=== PATIENT | female | born 1985 | race Two or more races ===

== ENCOUNTER → 2017-01-20 | Outpatient (CLI) | payer SELFPAY ==
--- NOTE | 2017-01-20 15:36 | RADIOLOGY REPORT (SQ) ---
EXAM DESCRIPTION: U/S OB 14+ TRNABD 1GES W/O DOP COMPLETED DATE/TIME: 01/20/2017 2:35 pm REASON FOR STUDY: ENCOUNTER FOR SUPERVISION OF OTHER NORMAL , SECOND TRIMESTER Z34.82 ENCO UNTER FOR SUPRVSN OF NORMAL , SECOND TRI COMPARISON: None. TECHNIQUE: Static and Dynamic grayscale imaging performed of gravid uterus using transabdominal appr oach. Additional selected color Doppler and spectral images recorded. All stored on PACS. LIMITATIONS: None. FINDINGS: EGA: 29 weeks 48 weeks MCKENZIE: 05/16/2017 EFW: 1415+/- 209 grams PERCENTILE: Not calculated BRIE: 13.6 cm PLACENTA: Anterior GRADE: I PRESENTATION: Cephalic. ANATOMY: HEART RATE: 147 beats per minute. FOUR CHAMBER HEART: Visualized. THREE VESSEL CORD: Yes. CORD INSERTION: Visualized. KIDNEYS AND BLADDER: Renal pelves appear prominent, 1 greater than the other. STOMACH: Visualized. Appears normal. SPINE: Normal as visualized. BRAIN AND LATERAL VENTRICLES: Lateral ventricles not seen. normal brain as visualized. OTHER: No other significant finding. MATERNAL ADNEXA: Maternal ovaries not visualized. CERVICAL LENGTH: Not applicable. Greater than 20 weeks. Need transvaginal study if indicated. Close d. OTHER: No other significant finding. IMPRESSION: 1. Live intrauterine gestation 29 weeks 4 days with an estimated date of delivery of . 2. The renal pelves are prominent, 1 more so than the other. Trimester of : Third trimester - 28 weeks to delivery. TECHNICAL DOCUMENTATION: JOB ID: [id number] [employer]- All Rights Reserved
== END ==
LOC: RAD 13:38
PROVIDERS: ATTEND Nurse Practitioner Women's Health
DX: Z34.83 Encounter for supervision of other normal pregnancy, third trimester (principal)
CPT/HCPCS: 76805

== ENCOUNTER 2017-04-07 00:48 | Inpatient (IN) | payer MEDICAID ==
[2017-04-07 01:45] LABS: AMNISURE (ROM) POSITIVE (NEGATIVE)
[2017-04-07 01:48] LABS: APPEARANCE,URINE CLEAR; BILIRUBIN,URINE NEGATIVE (NEGATIVE); GLUCOSE, URINE NEGATIVE (NEGATIVE); KETONES,URINE NEGATIVE (NEGATIVE); LEUKOCYTE ESTERASE,URINE TRACE (NEGATIVE); NITRITE,URINE NEGATIVE (NEGATIVE); PROTEIN,URINE NEGATIVE (NEGATIVE); URINE SPECIFIC GRAVITY 1.026; UROBILINOGEN,URINE NEGATIVE mg/dL (<2.0)
[2017-04-07] MEDS ORDERED: PENICILLIN G POTASSIUM 5,000,000 UNIT in DEXTROSE 5%-WATER 100 ML IV ONE (01:53)
[2017-04-07] MEDS ORDERED: RINGERS SOLUTION,LACTATED 1,000 ML IV ONE (01:53)
[2017-04-07 02:04] LABS: URINE BARBITURATES SCREEN NEGATIVE; URINE METHADONE SCREEN NEGATIVE; URINE OPIATES LOW NEGATIVE; URINE PHENCYCLIDINE SCREEN NEGATIVE
[2017-04-07] MEDS ORDERED: PENICILLIN G-K 5 MILLION UNIT VIAL IV PRN (02:05)
[2017-04-07] MEDS ORDERED: PENICILLIN G-K 5 MILLION UNIT VIAL ONE ×3 (02:28→10:09)
[2017-04-07 02:54] LABS: ABSOLUTE BASOPHILS # (AUTO) 0.1 10^3/uL (0.0-0.2); ABSOLUTE EOSINOPHILS # (AUTO) 0.5 10^3/uL (0.0-0.6); ABSOLUTE LYMPHOCYTES (AUTO) 1.7 10^3/uL (0.5-4.7); BASOPHILS % (AUTO) 0.6 % (0-2); EOSINOPHILS % (AUTO) 4.3 % (0-6); HEMOGLOBIN 9.4 g/dL (12.0-15.5); HGB HCT DIFFERENCE -0.8; LYMPHOCYTES % (AUTO) 15.4 % (13-45); MEAN CORPUSCULAR HEMOGLOBIN 24.7 pg (27.0-33.4); MEAN CORPUSCULAR HGB CONC 32.4 g/dL (32.0-36.0); MEAN CORPUSCULAR VOLUME 76 fl (80-97); MONOCYTES % (AUTO) 8.5 % (3-13); RED BLOOD COUNT 3.81 10^6/uL (3.72-5.28); RED CELL DISTRIBUTION WIDTH 14.4 % (11.5-14.0); SEGMENTED NEUTROPHILS % (AUTO) 71.2 % (42-78); WHITE BLOOD COUNT 11.2 10^3/uL (4.0-10.5)
[2017-04-07] MEDS ORDERED: OXYTOCIN/NORMAL SALINE 20 UNIT/1,000 ML RTUINJ ONE ×3 (03:49→13:04)
[2017-04-07] MEDS ORDERED: MISOPROSTOL 0.2 MG TABLET ONE ×2 (06:06→13:04)
[2017-04-07] MEDS ORDERED: LIDOCAINE 1% INJ-PF (10 MG/ML) 30 ML SDV ONE ×2 (06:06→13:04)
[2017-04-07] MEDS ORDERED: FENTANYL/BUPIVACAINE/NS/PF 200 MCG/100 ML RTUINJ EPI ONE (09:18)
[2017-04-07] MEDS ORDERED: EPHEDRINE SULFATE INJ 50 MG/1 ML AMPULE ONE (09:18)
[2017-04-07] MEDS ORDERED: BUPIVACAINE HCL 0.25 % INJ/PF (2.5 MG/1 ML) 30 ML VIAL ONE (09:19)
[2017-04-07] MEDS ORDERED: OXYTOCIN 10 UNIT/ML VIAL ONE (13:02)
[2017-04-07] MEDS ORDERED: DIPHENHYDRAMINE HCL 25 MG CAPSULE PO PRN (13:43)
[2017-04-07] MEDS ORDERED: NA PHOS,M-B/NA PHOS,DI-BA (ADULT) 133 ML ENEMA PR PRN (13:43)
[2017-04-07] MEDS ORDERED: PROMETHAZINE HCL 25 MG TABLET PO PRN (13:43)
[2017-04-07] MEDS ORDERED: GLYCERIN/WITCH HAZEL LEAF 1 EACH MED..PAD TP PRN (13:43)
[2017-04-07] MEDS ORDERED: MEASLES,MUMPS&RUBELLA VACC/PF 0.5 ML VIAL SUBCUT PRN (13:43)
[2017-04-07] MEDS ORDERED: ACETAMINOPHEN 650 MG SUPP.RECT PR PRN (13:43)
[2017-04-07] MEDS ORDERED: BENZOCAINE/MENTHOL AEROSOL SPRAY 56 ML TOP PRN (13:43)
[2017-04-07] MEDS ORDERED: MAGNESIUM HYDROXIDE SUSP 30 ML UDCUP PO PRN (13:43)
[2017-04-07] MEDS ORDERED: DIPH/PERTUSS(ACELL)/TETANUS VAC/PF 0.5 ML SYR (>=10YO) IM PRN (13:43)
[2017-04-07] MEDS ORDERED: PSEUDOEPHEDRINE HCL 30 MG TABLET PO PRN (13:43)
[2017-04-07] MEDS ORDERED: OXYTOCIN/NORMAL SALINE 20 UNIT/1,000 ML RTUINJ IV PRN (13:43)
[2017-04-07] MEDS ORDERED: DIBUCAINE 1% OINTMENT 28 GM TP PRN (13:43)
[2017-04-07] MEDS ORDERED: PROMETHAZINE HCL 25 MG SUPP.RECT PR PRN (13:43)
[2017-04-07] MEDS ORDERED: PROMETHAZINE HCL INJ 25 MG/1 ML VIAL IV PRN (13:43)
[2017-04-07] MEDS ORDERED: ACETAMINOPHEN WITH CODEINE #3 TABLET PO PRN (13:43)
[2017-04-07] MEDS ORDERED: IBUPROFEN 800 MG TABLET ONE (15:16)
[2017-04-07] MEDS ORDERED: ACETAMINOPHEN 325 MG TABLET ONE (15:16)
[2017-04-07] MEDS: IBUPROFEN 800 MG TABLET PO SCH ×2 (15:21→22:10)
--- NOTE | 2017-04-07 15:37 | Admission Physical ---
Datetime Report Generated by CPN: 04/07/2017 15:37 CURRENT ADMISSION Chief Complaint: Suspected Ruptured Membranes Indication for Induction: PROM Indication for Induction: Term, Intrauterine ; Ruptured Membranes Admit Plan: Admit to Unit; Initiate Labor Induction Protocol ALLERGIES Medication Allergies: No Medication Allergies: No Known Allergies (04/07/2017) Medication Allergies: No Known Allergies (01/06/2014) Latex: No Latex Allergies Food Allergies: N/A OBSTETRICAL HISTORY EDC: 04/03/2017 00:00 : 4 Para: 2 Term: 2 : 0 SAB: 1 IAB: 0 Ectopic: 0 Livin Cesareans: 0 VBACs: 0 Multiple Births: 1 Gestational Diabetes: No Rh Sensitization: No Incompetent Cervix: No JOSE: No Infertility: No ART Treatment: No Uterine Anomaly: No IUGR: No Hx Previous C/S: No Macrosomia: No Hx Loss/Stillborn: No PIH: No Hx : No Placenta Previa/Abruption: No Depression/PP Depression: No PTL/PROM: No Post Hemorrhage: No Current Procedures: Ultrasound; NST Obstetrical History Comments: G1- 40.1-gvciim-4izc 6 oz G2-SAB around 10 weeks G3-Induced at 41.0-ulwtbz-8sot 14oz SEE RECORDS Alcohol: No Marijuana : No Cocaine: No Other Illicit Drugs: No Cigarettes: Never Smoker. 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 Surgery: No Heart Disease: No Hosp/Surgery: No Autoimmune Disorder: No Anesthetic Complications: No Kidney Disease: No Abnormal Pap Smear: Yes Neuro/Epilepsy: No Psychiatric Disorders: No Other Medical Diseases: No Hepatitis/Liver Disease: No Significant Family History: No Varicosities/Phlebitis: No Trauma/Violence : No Thyroid Dysfunction: No Medical History Comments: childhood asthma INFECTIOUS HISTORY Gonorrhea: No Genital Herpes: No Chlamydia: No Tuberculosis: No Syphilis: No Hepatitis: No HIV/AIDS Exposure: No Rash or Viral Illness: No HPV: Yes PHYSICAL EXAM General: Normal HEENT: Normal Neurologic: Normal Thyroid: Normal Heart: Normal Lungs: Normal Breast: Deferred Back: Normal Abdomen: Normal Genitourinary Exam: Normal Extremities: Normal DTRs: Normal Pelvic Type: Adequate Vital Signs: Reviewed VAGINAL EXAM Dilatation: 2 Effacement: 60 Station: -2 MEMBRANES Pooling: Positive Membranes: Ruptured FETUS A EGA: 40.4 Monitoring: External US FHR- Baseline: 120 Variability: Moderate 6-25bpm Accelerations: 15X15 Decelerations: None FHR Category: Category I Admit Comment: Admit for pitocin PLANS FOR LABOR AND DELIVERY Labor and Delivery: None Pain Management: None Feeding Preference: Breast Benefit of Breast Feed Discussed: Yes Circumcision: Yes INFORMED CONSENT Signature: with User ID: [email or web address]
[2017-04-07] MEDS: PENICILLIN G POTASSIUM 2,500,000 UNIT in DEXTROSE 5%-WATER 50 ML IV SCH ×2 (16:16→17:07)
[2017-04-07] MEDS ORDERED: INFLUENZA ADLT QUAD (36MOS+) 2017-18 VAC 0.5 ML SYR IM PRN (16:16)
[2017-04-07] MEDS: FERROUS SULFATE 325 MG TABLET PO SCH (17:38)
[2017-04-07] MEDS: DOCUSATE SODIUM 100 MG CAPSULE PO SCH (17:38)
[2017-04-07] MEDS: FAMOTIDINE 20 MG TABLET PO SCH (22:09)
[2017-04-08] MEDS: PENICILLIN G POTASSIUM 2,500,000 UNIT in DEXTROSE 5%-WATER 50 ML IV SCH (00:44)
[2017-04-08] MEDS: IBUPROFEN 800 MG TABLET PO SCH ×3 (05:07→22:44)
[2017-04-08 08:09] LABS: HEMATOCRIT 28.4 % (36.0-47.0); HEMOGLOBIN 9.3 g/dL (12.0-15.5); HGB HCT DIFFERENCE -0.5; MEAN CORPUSCULAR HEMOGLOBIN 25.2 pg (27.0-33.4); MEAN CORPUSCULAR HGB CONC 32.9 g/dL (32.0-36.0); MEAN CORPUSCULAR VOLUME 77 fl (80-97); RED CELL DISTRIBUTION WIDTH 14.8 % (11.5-14.0); WHITE BLOOD COUNT 13.2 10^3/uL (4.0-10.5)
--- NOTE | 2017-04-08 09:01 | PDOC PROGRESS REPORT ---
Subjective-OB Subjective: Post Delivery Day: 1 31 year old. Denies any needs at this time, voiding without difficulty, tolerating diet, pain is well controlled. Physical Exam (OB) Vital Signs: Temp Pulse Resp BP Pulse Ox 97.8 F 84 18 103/65 100 04/08/17 08:00 04/08/17 08:00 04/08/17 08:00 04/08/17 08:00 04/08/17 08:00 Intake & Output 04/07/17 04/08/17 04/09/17 06:59 06:59 06:59 Weight 56.7 kg - PIH/Pre-Eclampsia DTR's: 1 + Clonus: Negative Headache: Absent Epigastric Pain: No Visual Changes: No - Lochia Lochia Amount: Scant < 10 ml Lochia Color: Rubra/Red - Abdomen Description: Soft, Round Hernia Present: No Fundal Description: Firm, Midline Fundal Height: u/u - u/2 Objective-Diagnostic Laboratory: 04/08/17 07:29 04/08/17 07:29 WBC 13.2 H RBC 3.70 L Hgb 9.3 L Hct 28.4 L MCV 77 L MCH 25.2 L MCHC 32.9 RDW 14.8 H Plt Count 228 Assessment and Plan(PN) - Assessment and Plan (1) Delivery normal Is this a current diagnosis for this admission?: Yes Plan: routine pp care (2) Positive GBS test Is this a current diagnosis for this admission?: Yes Plan: abx maternal temp - Time Spent with Patient Time with patient: Less than 15 minutes Critical Time spent with patient: Less than 15 minutes Medications reviewed and adjusted accordingly: Yes - Disposition Anticipated Discharge: Home Within: within 24 hours
[2017-04-08] MEDS: DOCUSATE SODIUM 100 MG CAPSULE PO SCH ×2 (10:20→17:58)
[2017-04-08] MEDS: FERROUS SULFATE 325 MG TABLET PO SCH ×2 (10:20→17:58)
[2017-04-08] MEDS: FAMOTIDINE 20 MG TABLET PO SCH ×2 (10:21→22:44)
[2017-04-08] MEDS: PRENATAL VITAMIN W DHA CAPSULE PO SCH (10:21)
[2017-04-08] MEDS: SENNOSIDES/DOCUSATE 8.6-50 MG 1 EACH TABLET PO SCH (10:21)
--- NOTE | 2017-04-08 14:15 | Delivery Summary ---
Del Sum A-C Datetime Report Generated by CPN: 04/08/2017 14:15 DELIVERY PERSONNEL DELIVERY PERSONNEL: [id number] Delivery Doctor:: Neha Denton CNM Nurse [employer] Black Belt Certified:: Neha Denton CNM Labor and Delivery Nurse:: Kaur Arcos RNconstruction and maintenance inspector Nurse:: Isabel Stafford RN Shaker Screen Operator:: SHAKA Keller Nursery Nurse:: Marv Weiner RN Nursery Nurse:: Alexys Mace RN Phlebotomy Technician/LOUVER MORTISER OPERATOR: Maki Ricci, LOUVER MORTISER OPERATOR II MATERNAL INFORMATION Delivery Anesthesia: Epidural Medications After Delivery: Pitocin Drip 20 Units/1000ml NSS Estimated Blood Loss (ml): 100 Maternal Complications: None Provider Comments: Called into room pt had been pushing with rn and ready for delivery. VMI delivered with right compound hand. Spontaneous respiratory effort and cry at . Baby placed on maternal abdomen, cord allowed to stop pulsating then clamped x2 and cut (3vc noted). Placenta delivered spontaneously intact, vaginal and perineal inspections revealed no lacerations. Fundus firm @ U-2, bleeding stable. Mother and baby in room stable and remain skin to skin. LABOR SUMMARY EDC: 04/03/2017 00:00 No. Babies in Womb: 1 Attempted: No Labor Anesthesia: Epidural LABOR INFORMATION Reason for Induction: Premature Rupture of Membranes Onset of Labor: 04/07/2017 08:30 Complete Dilatation: 04/07/2017 13:04 Oxytocin: Augmentation Group B Beta Strep: positive Antibiotics # of Doses: 3 Antibiotics Time of Last Dose: 1018 Steroids Given: None Reason Steroids Not Administered: Not Applicable MEMBRANES Membranes Rupture Method: Spontaneous Rupture of Membranes: 04/06/2017 22:00 Length of Rupture (hr): 15.40 Amniotic Fluid Color: Clear Amniotic Fluid Amount: Scant Amniotic Fluid Odor: None STAGES OF LABOR Stage 1 hr: 4 Stage 1 min: 34 Stage 2 hr: 0 Stage 2 min: 20 Stage 3 hr: 0 Stage 3 min: 6 Total Time in Labor hr: 5 Total Time in Labor min: 0 VAGINAL DELIVERY Episiotomy: None Laceration #1: None Laceration Extension #1: N/A Laceration #2: None Laceration #3: None Laceration Repair: Not Applicable Laceration Repair Note: perineal abrasion-hemostatic no repair needed. Sponge Count Correct: N/A CSECTION DELIVERY Primary Indication: N/A Secondary Indication: N/A CSection Incidence: N/A Labor: N/A Elective: N/A CSection Incision: N/A BABY A INFORMATION Infant Delivery Date/Time: 04/07/2017 13:24 Method of Delivery: Vaginal Born in Route : No : N/A Forceps: N/A Vacuum Extraction: N/A Shoulder Dystocia : No PRESENTATION/POSITION BABY A Presentation: Cephalic Cephalic Presentation: Vertex Vertex Position: Right Occipital Anterior Breech Presentation: N/A PLACENTA INFORMATION BABY A Placenta Delivery Time : 04/07/2017 13:30 Placenta Method of Delivery: Spontaneous Placenta Status: Delivered SCORES BABY A Heart Rate 1 min: >100 bpm Resp Effort 1 min: Good Cry Reflex Irritability 1 min: Cough or Sneeze or Pulls Away Muscle Tone 1 min: Active Motion Color 1 min: Body [place], Extremities Blue Resuscitation Effort 1 min: Tactile Stimulation SCORE 1 MIN: 9 Heart Rate 5 min: >100 bpm Resp Effort 5 min: Good Cry Reflex Irritability 5 min: Cough or Sneeze or Pulls Away Muscle Tone 5 min: Active Motion Color 5 min: Body [place], Extremities Blue Resuscitation Effort 5 min: Tactile Stimulation SCORE 5 MIN: 9 INFORMATION BABY A Gestational Age at Delivery: 40.4 Gestational Status: Full Term- 39- 40.6 Weeks Outcome : Liveborn Infant Condition : Stable Infant Sex: Male IDENTIFICATION BABY A Infant Verification Date/Time: 04/07/2017 13:50 ID Band Number: [id number] Mother's Name Verified: Yes RN Verifying : Jomar Stafford RN Additional Verifying Personnel: Laury Arcos RN WEIGHT/LENGTH BABY A Infant Birthweight (gm): 3480 Weight (lb): 7 Infant Weight (oz): 11 Infant Length (in): 19.25 Length (cm): 48.90 CORD INFORMATION BABY A No. Cord Vessels: 3 Nuchal Cord : N/A Cord Blood Taken: Yes-For Storage (Mom's Blood type +) Suction: Mouth; Nose ASSESSMENT BABY A Infant Complications: None Physical Findings at Delivery: Within Normal Limits Physical Findings- Other: Right compound hand Infant Respirations: Appears Normal Skin to Skin: Yes Skin to Skin: Yes Skin to Skin: Yes Skin to Skin: Yes Skin to Skin Time (min): 30 Supervisor Cell Operation/ALS Called : No Care By: Laury Weiner RN Transferred To: Remains with Mother BABY B INFORMATION : N/A SIGNATURES Assignment: Karmen Figueroa MD Signature: with User ID: [email or web address] : with User ID: [email or web address]
--- NOTE | 2017-04-08 14:17 | Warning Signs in Babies ---
VOD Warning Signs Datetime Report Generated by [facility]: 04/08/2017 14:17 VOD#608 -Warning Signs in Babies: Needs to be viewed. (04/08/2017 14:14:Rosemary Contreras)
[2017-04-09] MEDS: IBUPROFEN 800 MG TABLET PO SCH (06:34)
--- NOTE | 2017-04-09 09:17 | PDOC DISCHARGE SUMMARY ---
Final Diagnosis Discharge Date: 04/09/17 - Final Diagnosis (1) Delivery normal Is this a current diagnosis for this admission?: Yes (2) Positive GBS test Is this a current diagnosis for this admission?: Yes (3) Anemia Is this a current diagnosis for this admission?: Yes Discharge Data - Discharge Medication Home Medications: Pnv,Calcium 72/Iron/Folic Acid [Pnv Plus Multivit Tab] 1 each PO DAILY 07/13/15 Docusate Sodium [Colace 100 mg Capsule] 100 mg PO BID #60 capsule 04/09/17 Ferrous Sulfate [Feosol 325 mg Tablet] 325 mg PO BID #60 tablet 04/09/17 Ibuprofen [Motrin 800 mg Tablet] 800 mg PO Q8 #60 tablet 04/09/17 Gestational Age: 40.4 Reason(s) for Admission: Onset of Labor, Group B Strep Positive Procedures: NST Intrapartum Procedure(s): Spontaneous Vaginal Delivery - Diagnosis Test Laboratory: Temp Pulse Resp BP Pulse Ox 98.5 F 82 15 113/62 100 04/09/17 07:38 04/09/17 07:38 04/09/17 07:38 04/09/17 07:38 04/09/17 07:38 04/07/17 04/07/17 04/08/17 00:52 02:12 07:29 RBC 3.81 3.70 L Hgb 9.4 L 9.3 L Hct 29.0 L 28.4 L Urine Opiates Screen NEGATIVE - Discharge information/Instructions Discharge Activity: Activity As Tolerated, Pelvic Rest, No tub bath Discharge Diet: Regular Disposition: HOME, SELF-CARE Follow up with: [facility] in: 4, Weeks
[2017-04-09 09:21] VITALS: BP 103/65
[2017-04-09] MEDS: FERROUS SULFATE 325 MG TABLET PO SCH (10:07)
[2017-04-09] MEDS: FAMOTIDINE 20 MG TABLET PO SCH (10:07)
[2017-04-09] MEDS: SENNOSIDES/DOCUSATE 8.6-50 MG 1 EACH TABLET PO SCH (10:07)
[2017-04-09] MEDS: DOCUSATE SODIUM 100 MG CAPSULE PO SCH (10:07)
[2017-04-09] MEDS: PRENATAL VITAMIN W DHA CAPSULE PO SCH (10:07)
== END 2017-04-09 13:19 | disposition home or self-care (01) | DRG 775 ==
LOC: LC 00:48 → LR 01:52 → 2S 15:35
PROVIDERS: ADMIT Obstetrics & Gynecology; ATTEND Obstetrics & Gynecology
PROC: 10E0XZZ Delivery of Products of Conception, External Approach (ICD-10-PCS; principal; 2017-04-07)
PROC: 4A1HXCZ Monitoring of Products of Conception, Cardiac Rate, External Approach (ICD-10-PCS; 2017-04-07)
DX: O99.824 Streptococcus B carrier state complicating childbirth (principal); O99.02 Anemia complicating childbirth; D64.9 Anemia, unspecified; O99.52 Diseases of the respiratory system complicating childbirth; J45.909 Unspecified asthma, uncomplicated; O32.6XX0 Maternal care for compound presentation, not applicable or unspecified; O42.02 Full-term premature rupture of membranes, onset of labor within 24 hours of rupture; Z3A.40 40 weeks gestation of pregnancy; Z37.0 Single live birth
CPT/HCPCS: 36415; 80307; 81001; 84112; 85025; 85027; 86592; 86850; 86900; 86901; J2540; J2590; J3490

== ENCOUNTER 2018-12-08 14:45 | Inpatient (IN) | payer SELFPAY ==
[2018-12-08] MEDS ORDERED: RINGERS SOLUTION,LACTATED 300 ML IV ONE (15:01)
[2018-12-08] MEDS ORDERED: OXYTOCIN/NORMAL SALINE 20 UNIT/1,000 ML RTUINJ IV PRN (15:01)
[2018-12-08] MEDS ORDERED: RINGERS SOLUTION,LACTATED 1,000 ML IV PRN (15:01)
[2018-12-08] MEDS ORDERED: PENICILLIN G POTASSIUM 5,000,000 UNIT in DEXTROSE 5%-WATER 100 ML IV ONE (15:03)
[2018-12-08 15:38] LABS: URINE AMPHETAMINES SCREEN NEGATIVE; URINE BARBITURATES SCREEN NEGATIVE; URINE BENZODIAZEPINES SCREEN NEGATIVE; URINE COCAINE SCREEN NEGATIVE; URINE MARIJUANA (THC) SCREEN NEGATIVE; URINE METHADONE SCREEN NEGATIVE; URINE PHENCYCLIDINE SCREEN NEGATIVE
[2018-12-08 15:39] LABS: ABSOLUTE BASOPHILS # (AUTO) 0.1 10^3/uL (0.0-0.2); ABSOLUTE EOSINOPHILS # (AUTO) 0.2 10^3/uL (0.0-0.6); ABSOLUTE MONOCYTES (AUTO) 0.5 10^3/uL (0.1-1.4); HEMATOCRIT 31.1 % (36.0-47.0); RED CELL DISTRIBUTION WIDTH 15.4 % (11.5-14.0); TOTAL CELLS COUNTED % (AUTO) 100 %
[2018-12-08] MEDS ORDERED: PENICILLIN G-K 5 MILLION UNIT VIAL ONE ×2 (15:46→20:11)
--- NOTE | 2018-12-08 15:49 | Admission Physical ---
Datetime Report Generated by CPN: 12/08/2018 15:49 CURRENT ADMISSION Chief Complaint: Scheduled Induction of Labor Indication for Induction: Post Dates Admit Impression : Postterm, Intrauterine ; Intact Membranes; Induction of Labor Admit Plan: Admit to Unit; Initiate Labor Induction Protocol Admit Plan- Other: Start PCN for GBS + status ALLERGIES Medication Allergies: No Medication Allergies: No Known Allergies (12/08/2018) Latex: No Latex Allergies OBSTETRICAL HISTORY : 5 Para: 3 Gestational Diabetes: No Rh Sensitization: No Incompetent Cervix: No JOSE: No Infertility: No ART Treatment: No Uterine Anomaly: No IUGR: No Hx Previous C/S: No Macrosomia: No Hx Loss/Stillborn: No PIH: No Hx : No Placenta Previa/Abruption: No Depression/PP Depression: No PTL/PROM: No Post Hemorrhage: No Current Procedures: Ultrasound Obstetrical History Comments: G1- 2007, NVD AT 40. 6 G2- Miscarriage at 12 weeks G3- 2016, NVD AT 41.1 G4- 2017, NVD AT 40.4 G5- Current SEE RECORDS Alcohol: No Marijuana : No Cocaine: No Other Illicit Drugs: No Cigarettes: Never Smoker. 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 Surgery: No Heart Disease: No Hosp/Surgery: No Autoimmune Disorder: No Anesthetic Complications: No Kidney Disease: No Abnormal Pap Smear: No Neuro/Epilepsy: No Psychiatric Disorders: No Other Medical Diseases: No Hepatitis/Liver Disease: No Significant Family History: No Varicosities/Phlebitis: No Trauma/Violence : No Thyroid Dysfunction: No INFECTIOUS HISTORY Gonorrhea: No Genital Herpes: No Chlamydia: No Tuberculosis: No Syphilis: No Hepatitis: No HIV/AIDS Exposure: No Rash or Viral Illness: No HPV: No PHYSICAL EXAM General: Normal HEENT: Normal Neurologic: Normal Thyroid: Normal Heart: Normal Lungs: Normal Breast: Normal Back: Normal Abdomen: Normal Genitourinary Exam: Normal Extremities: Normal DTRs: Normal Pelvic Type: Adequate Vital Signs: Reviewed; Within Normal Limits VAGINAL EXAM Dilatation: 6 Effacement: 80 Station: 0 MEMBRANES Membranes: Intact FETUS A Monitoring: External US FHR- Baseline: 130 Variability: Moderate 6-25bpm Accelerations: 15X15 Decelerations: None FHR Category: Category I Admit Comment: here for IOL at 41.1 wks. Doing well today, no c/o SROM or bleeding. GBS+ status. VE n admission /0, vtx, with irregular contractions. Pt is unsure if she wants an epidural or not, she is currently comfortable. EFW 8+11 on ultrasound earlier this week. Will admit, start PCN prophyaxis and routine Pitocin. Attending MD is Dr Mas PLANS FOR LABOR AND DELIVERY Labor and Delivery: None Pain Management: Natural Feeding Preference: Breast Benefit of Breast Feed Discussed: Yes Circumcision: N/A INFORMED CONSENT Assignment: Kaya Mas MD Signature: with User ID: [email or web address] : with User ID: [email or web address]
[2018-12-08 15:52] LABS: ABSOLUTE LYMPHOCYTES (AUTO) 1.3 10^3/uL (0.5-4.7); ABSOLUTE NEUT (AUTO) 6.2 10^3/uL (1.7-8.2); BASOPHILS % (AUTO) 0.8 % (0-2); EOSINOPHILS % (AUTO) 2.5 % (0-6); HEMOGLOBIN 10.4 g/dL (12.0-15.5); LYMPHOCYTES % (AUTO) 15.4 % (13-45); MEAN CORPUSCULAR HEMOGLOBIN 25.8 pg (27.0-33.4); MEAN CORPUSCULAR HGB CONC 33.4 g/dL (32.0-36.0); MEAN CORPUSCULAR VOLUME 77 fl (80-97); MONOCYTES % (AUTO) 5.9 % (3-13); PLATELET COUNT 205 10^3/uL (150-450); RED BLOOD COUNT 4.01 10^6/uL (3.72-5.28); SEGMENTED NEUTROPHILS % (AUTO) 75.4 % (42-78); WHITE BLOOD COUNT 8.3 10^3/uL (4.0-10.5)
[2018-12-08] MEDS ORDERED: OXYTOCIN 10 UNIT/ML VIAL ONE (15:58)
[2018-12-08] MEDS ORDERED: MISOPROSTOL 0.2 MG TABLET ONE (15:58)
[2018-12-08] MEDS ORDERED: LIDOCAINE 1% INJ-PF (10 MG/ML) 30 ML SDV ONE (15:58)
[2018-12-08] MEDS ORDERED: OXYTOCIN/NORMAL SALINE 20 UNIT/1,000 ML RTUINJ ONE (15:58)
[2018-12-08] MEDS ORDERED: NALBUPHINE HCL INJ 10 MG/1 ML AMPULE INJ ONE ×2 (20:05→20:27)
[2018-12-08] MEDS ORDERED: PROMETHAZINE HCL INJ 25 MG/1 ML VIAL IV ONE (20:05)
[2018-12-08] MEDS: PENICILLIN G POTASSIUM 2,500,000 UNIT in DEXTROSE 5%-WATER 50 ML IV SCH (20:15)
[2018-12-08] MEDS ORDERED: PROMETHAZINE HCL INJ 25 MG/1 ML VIAL ONE (20:27)
[2018-12-08] MEDS ORDERED: NALBUPHINE HCL INJ 10 MG/1 ML AMPULE ONE ×2 (20:27→20:29)
[2018-12-08] MEDS ORDERED: PROMETHAZINE HCL 25 MG TABLET PO PRN (22:09)
[2018-12-08] MEDS ORDERED: OXYTOCIN/NORMAL SALINE 1,000 ML IV PRN (22:09)
[2018-12-08] MEDS ORDERED: MAGNESIUM HYDROXIDE SUSP 30 ML UDCUP PO PRN (22:09)
[2018-12-08] MEDS ORDERED: PSEUDOEPHEDRINE HCL 30 MG TABLET PO PRN (22:09)
[2018-12-08] MEDS ORDERED: DIPHENHYDRAMINE HCL 25 MG CAPSULE PO PRN (22:09)
[2018-12-08] MEDS ORDERED: NA PHOS,M-B/NA PHOS,DI-BA (ADULT) 133 ML ENEMA PR PRN (22:09)
[2018-12-08] MEDS ORDERED: BENZOCAINE/MENTHOL AEROSOL SPRAY 56 ML TOP PRN (22:09)
[2018-12-08] MEDS ORDERED: MEASLES,MUMPS&RUBELLA VACC/PF 0.5 ML VIAL SUBCUT PRN (22:09)
[2018-12-08] MEDS ORDERED: ACETAMINOPHEN WITH CODEINE #3 TABLET PO PRN ×2 (22:09)
[2018-12-08] MEDS ORDERED: PROMETHAZINE HCL INJ 25 MG/1 ML VIAL IV PRN (22:09)
[2018-12-08] MEDS ORDERED: DIPH/PERTUSS(ACELL)/TETANUS VAC/PF 0.5 ML SYR (>=10YO) IM PRN (22:09)
[2018-12-08] MEDS ORDERED: PROMETHAZINE HCL 25 MG SUPP.RECT PR PRN (22:09)
[2018-12-08] MEDS ORDERED: GLYCERIN/WITCH HAZEL LEAF 1 EACH MED..WIPE TP PRN (22:09)
[2018-12-08] MEDS ORDERED: ACETAMINOPHEN 650 MG SUPP.RECT PR PRN (22:09)
[2018-12-08] MEDS ORDERED: DIBUCAINE 1% OINTMENT 56 GM TP PRN (22:09)
[2018-12-08] MEDS ORDERED: ZOLPIDEM TARTRATE 5 MG TABLET PO PRN (22:09)
[2018-12-09] MEDS ORDERED: FAMOTIDINE 20 MG TABLET PO ONE (01:00)
[2018-12-09] MEDS: IBUPROFEN 800 MG TABLET PO SCH ×3 (05:34→21:24)
[2018-12-09 07:25] LABS: HEMATOCRIT 26.3 % (36.0-47.0); HEMOGLOBIN 8.7 g/dL (12.0-15.5); MEAN CORPUSCULAR HEMOGLOBIN 25.7 pg (27.0-33.4); MEAN CORPUSCULAR HGB CONC 33.1 g/dL (32.0-36.0); MEAN CORPUSCULAR VOLUME 78 fl (80-97); PLATELET COUNT 204 10^3/uL (150-450); RED BLOOD COUNT 3.37 10^6/uL (3.72-5.28); RED CELL DISTRIBUTION WIDTH 15.5 % (11.5-14.0); WHITE BLOOD COUNT 12.8 10^3/uL (4.0-10.5)
[2018-12-09] MEDS: PENICILLIN G POTASSIUM 2,500,000 UNIT in DEXTROSE 5%-WATER 50 ML IV SCH (07:46)
[2018-12-09] MEDS: DOCUSATE SODIUM 100 MG CAPSULE PO SCH ×2 (10:04→17:44)
[2018-12-09] MEDS: FERROUS SULFATE 325 MG TABLET PO SCH ×2 (10:04→17:44)
[2018-12-09] MEDS: PRENATAL VITAMIN W DHA CAPSULE PO SCH (10:04)
[2018-12-09] MEDS: SENNOSIDES/DOCUSATE 8.6-50 MG 1 EACH TABLET PO SCH (10:06)
[2018-12-09] MEDS: FAMOTIDINE 20 MG TABLET PO SCH ×2 (10:06→21:24)
--- NOTE | 2018-12-09 10:41 | PDOC PROGRESS REPORT ---
Subjective-OB Progress Note for:: 12/09/18 - PP Day #1, doing well, no complaints, ambulating w/out assistance, , A+, Rubella Immune Physical Exam (OB) Vital Signs: Temp Pulse Resp BP Pulse Ox 98.3 F 87 16 103/56 L 100 12/09/18 07:52 12/09/18 07:52 12/09/18 07:52 12/09/18 07:52 12/09/18 00:30 Intake & Output 12/08/18 12/09/18 12/10/18 06:59 06:59 06:59 Weight 55.3 kg - General General Appearance: Appears well, Alert In distress: None - Lochia Lochia Amount: Small 10-25 ml Lochia Color: Rubra/Red - Abdomen Description: Soft, Round Hernia Present: No Fundal Height: u/u - u/2 - Respiratory Respiratory Status: No respiratory distress - Abdominal Inspection: Normal Distension: No distension - Genitourinary Genitourinary Note: voiding - Extremities Upper extremity: Normal inspection Lower extremities: Normal inspection - Neurological Cognition: Normal Orientation: AAOx4 - Psychological Associated symptoms: Normal affect, Normal mood - Skin Skin Temperature: Warm Skin Moisture: Dry Objective-Diagnostic Laboratory: 12/09/18 06:47 12/08/18 12/08/18 12/09/18 15:22 15:22 06:47 WBC 8.3 12.8 H RBC 4.01 3.37 L Hgb 10.4 L 8.7 L Hct 31.1 L 26.3 L MCV 77 L 78 L MCH 25.8 L 25.7 L MCHC 33.4 33.1 RDW 15.4 H 15.5 H Plt Count 205 204 Seg Neutrophils % 75.4 Lymphocytes % 15.4 Monocytes % 5.9 Eosinophils % 2.5 Basophils % 0.8 Absolute Neutrophils 6.2 Absolute Lymphocytes 1.3 Absolute Monocytes 0.5 Absolute Eosinophils 0.2 Absolute Basophils 0.1 Blood Type A POSITIVE Antibody Screen NEGATIVE Assessment and Plan(PN) - Assessment and Plan (1) Abnormal AFP screen Is this a current diagnosis for this admission?: Yes (2) Anemia Qualifiers: Anemia type: iron deficiency Is this a current diagnosis for this admission?: Yes (3) Delivery normal Is this a current diagnosis for this admission?: Yes (4) Positive GBS test Is this a current diagnosis for this admission?: Yes (5) Qualifiers: Weeks of gestation: 41 weeks Qualified Code(s): Z3A.41 - 41 weeks gestation of Is this a current diagnosis for this admission?: Yes (6) Uterine fibroid Qualifiers: Uterine leiomyoma location: unspecified location Qualified Code(s): D25.9 - Leiomyoma of uterus, unspecified Is this a current diagnosis for this admission?: Yes - Time Spent with Patient Time with patient: Less than 15 minutes Medications reviewed and adjusted accordingly: Yes - Disposition Anticipated Discharge: Home Within: within 24 hours
[2018-12-10] MEDS: IBUPROFEN 800 MG TABLET PO SCH ×2 (05:51→14:37)
[2018-12-10 08:38] VITALS: BP 113/66
--- NOTE | 2018-12-10 10:27 | PDOC DISCHARGE SUMMARY ---
Final Diagnosis Discharge Date: 12/10/18 - Day #2, doing well, no complaints, , hx anemia, A+, Rubella immune - Final Diagnosis (1) Abnormal AFP screen Is this a current diagnosis for this admission?: Yes (2) Anemia Is this a current diagnosis for this admission?: Yes (3) Delivery normal Is this a current diagnosis for this admission?: Yes (4) Positive GBS test Is this a current diagnosis for this admission?: Yes (5) Is this a current diagnosis for this admission?: Yes (6) Uterine fibroid Is this a current diagnosis for this admission?: Yes Discharge Data - Discharge Medication Prescriptions: Ferrous Sulfate [Feosol 325 mg Tablet] 325 mg PO BID #60 tablet Ibuprofen [Motrin 800 mg Tablet] 800 mg PO Q8 #60 tablet Home Medications: Pnv,Calcium 72/Iron/Folic Acid [Pnv Plus Multivit Tab] 1 each PO DAILY 07/13/15 Ferrous Sulfate [Feosol 325 mg Tablet] 325 mg PO BID #60 tablet 12/10/18 Ibuprofen [Motrin 800 mg Tablet] 800 mg PO Q8 #60 tablet 12/10/18 Reason(s) for Admission: Induction of Labor Procedures: Ultrasound Intrapartum Procedure(s): Spontaneous Vaginal Delivery - Diagnosis Test Laboratory: Temp Pulse Resp BP Pulse Ox 98.2 F 83 16 113/66 100 12/10/18 08:00 12/10/18 08:00 12/10/18 08:00 12/10/18 08:00 12/10/18 08:00 12/08/18 12/08/18 12/09/18 15:00 15:22 06:47 RBC 4.01 3.37 L Hgb 10.4 L 8.7 L Hct 31.1 L 26.3 L Urine Opiates Screen NEGATIVE - Discharge information/Instructions Discharge Activity: Activity As Tolerated, No Lifting Over 10 Pounds, Pelvic Rest, Slowly Increase Activity Discharge Diet: As Tolerated, Regular Disposition: HOME, SELF-CARE Follow up with: [facility] in: 4, Weeks - with the Health Dept
[2018-12-10] MEDS: PRENATAL VITAMIN W DHA CAPSULE PO SCH (10:36)
[2018-12-10] MEDS: DOCUSATE SODIUM 100 MG CAPSULE PO SCH (10:36)
[2018-12-10] MEDS: SENNOSIDES/DOCUSATE 8.6-50 MG 1 EACH TABLET PO SCH (10:36)
[2018-12-10] MEDS: FAMOTIDINE 20 MG TABLET PO SCH (10:36)
[2018-12-10] MEDS: FERROUS SULFATE 325 MG TABLET PO SCH (10:36)
--- NOTE | 2018-12-19 09:30 | Delivery Summary ---
Del Sum A-C Datetime Report Generated by CPN: 12/19/2018 09:29 DELIVERY PERSONNEL DELIVERY PERSONNEL: [id number] Delivery Doctor:: Kaya Mas MD Labor and Delivery Nurse:: Betsey Logan RN Labor and Delivery Nurse:: Eugenia Benz RN Nursery Nurse:: Sandi Enriquez RN Nursery Nurse:: Sis Martinez RN Assisted Living Housekeeper/LIVESTOCK RANCHER: Alisha Guerrero, ST MATERNAL INFORMATION Delivery Anesthesia: None Medications After Delivery: Pitocin Drip 20 Units/1000ml NSS; Cytotec 1000mcg Per Rectum/Vagina Maternal Complications: None LABOR SUMMARY EDC: 11/30/2018 00:00 No. Babies in Womb: 1 Attempted: No Labor Anesthesia: None LABOR INFORMATION Reason for Induction: Post Dates Onset of Labor: 12/08/2018 15:40 Complete Dilatation: 12/08/2018 21:42 Oxytocin: Induction Group B Beta Strep: Positive Antibiotics # of Doses: 2 Antibiotics Time of Last Dose: 2015 Name of Antibiotic Given: penicillin Steroids Given: None Reason Steroids Not Administered: Not Applicable MEMBRANES Membranes Rupture Method: Artificial Rupture of Membranes: 12/08/2018 20:20 Length of Rupture (hr): 1.53 Amniotic Fluid Color: Moderate Meconium Amniotic Fluid Amount: Small Amniotic Fluid Odor: Normal STAGES OF LABOR Stage 1 hr: 6 Stage 1 min: 2 Stage 2 hr: 0 Stage 2 min: 10 Stage 3 hr: 0 Stage 3 min: 6 Total Time in Labor hr: 6 Total Time in Labor min: 18 VAGINAL DELIVERY Episiotomy: None Laceration #1: None Laceration Extension #1: N/A Laceration #2: None Laceration Extension #2: N/A Laceration #3: None Laceration Extension #3: N/A Laceration Repair: Not Applicable Sharps Count Correct: N/A CSECTION DELIVERY Primary Indication: N/A Secondary Indication: N/A CSection Incidence: N/A Labor: N/A Elective: N/A CSection Incision: N/A BABY A INFORMATION Infant Delivery Date/Time: 12/08/2018 21:52 Method of Delivery: Vaginal Born in Route : No : N/A Forceps: N/A Vacuum Extraction: N/A Shoulder Dystocia : No PRESENTATION/POSITION BABY A Presentation: Cephalic Cephalic Presentation: Vertex Vertex Position: Left Occipital Anterior Breech Presentation: N/A PLACENTA INFORMATION BABY A Placenta Delivery Time : 12/08/2018 21:58 Placenta Method of Delivery: Expressed Placenta Method of Delivery: Spontaneous Placenta Status: Delivered SCORES BABY A Heart Rate 1 min: >100 bpm Resp Effort 1 min: Good Cry Reflex Irritability 1 min: Cough or Sneeze or Pulls Away Muscle Tone 1 min: Active Motion Color 1 min: Body [place], Extremities Blue SCORE 1 MIN: 9 Heart Rate 5 min: >100 bpm Resp Effort 5 min: Good Cry Reflex Irritability 5 min: Cough or Sneeze or Pulls Away Muscle Tone 5 min: Active Motion Color 5 min: Body [place], Extremities Blue SCORE 5 MIN: 9 INFORMATION BABY A Gestational Age at Delivery: 41.1 Gestational Status: Late Term- 41- 41.6 Weeks Infant Outcome : Liveborn Infant Condition : Stable Sex: Female IDENTIFICATION BABY A Verification Date/Time: 12/08/2018 22:34 ID Band Number: [id number] Mother's Name Verified: Yes RN Verifying Infant: Vincent Logan/ Thad Sanchez WEIGHT/LENGTH BABY A Birthweight (gm): 3448 Weight (lb): 7 Weight (oz): 10 Length (in): 20.00 Infant Length (cm): 50.80 CORD INFORMATION BABY A No. Cord Vessels: 3 Nuchal Cord : N/A Suction: Mouth; Nose ASSESSMENT BABY A Complications: None Physical Findings at Delivery: Within Normal Limits Skin to Skin: Yes Transferred To: Remains with Mother BABY B INFORMATION : N/A SIGNATURES Signature: with User ID: [email or web address]
== END 2018-12-10 15:49 | disposition home or self-care (01) | DRG 807 ==
LOC: LR 14:45 → 2S 12-09 00:22
PROVIDERS: ADMIT Obstetrics & Gynecology; ATTEND Obstetrics & Gynecology
PROC: 10E0XZZ Delivery of Products of Conception, External Approach (ICD-10-PCS; principal; 2018-12-08)
PROC: 3E033VJ Introduction of Other Hormone into Peripheral Vein, Percutaneous Approach (ICD-10-PCS; 2018-12-08)
PROC: 10907ZC Drainage of Amniotic Fluid, Therapeutic from Products of Conception, Via Natural or Artificial Opening (ICD-10-PCS; 2018-12-08)
PROC: 4A1HXCZ Monitoring of Products of Conception, Cardiac Rate, External Approach (ICD-10-PCS; 2018-12-08)
DX: O48.0 Post-term pregnancy (principal); Z37.0 Single live birth; O99.824 Streptococcus B carrier state complicating childbirth; O99.02 Anemia complicating childbirth; D50.9 Iron deficiency anemia, unspecified; O34.13 Maternal care for benign tumor of corpus uteri, third trimester; D25.9 Leiomyoma of uterus, unspecified; Z3A.41 41 weeks gestation of pregnancy
CPT/HCPCS: 36415; 80307; 85025; 85027; 86592; 86850; 86900; 86901; J2300; J2540; J2550; J2590; J3490